=== PATIENT | male | born 1995 | race African-American/Black ===

== ENCOUNTER 2021-01-28 19:37 | Emergency (ER) | payer MEDICAID ==
[~2021-01-28] VITALS: Ht 190.5 cm; Wt 86.4 kg
[2021-01-28 20:45] VITALS: BP 122/76
== END 2021-01-28 21:10 | disposition home or self-care (01) ==
LOC: EMS 19:39
DX: T16.1XXA Foreign body in right ear, initial encounter (principal); F17.210 Nicotine dependence, cigarettes, uncomplicated; W45.8XXA Other foreign body or object entering through skin, initial encounter; Y93.89 Activity, other specified; Y92.89 Other specified places as the place of occurrence of the external cause; Y99.8 Other external cause status
CPT/HCPCS: 99281; Z7502

== ENCOUNTER 2021-03-07 02:32 | Emergency (ER) | payer MEDICAID ==
[~2021-03-07] VITALS: Ht 190.5 cm; Wt 89.5 kg
[2021-03-07 02:35] VITALS: BP 127/75
== END 2021-03-07 03:44 | disposition home or self-care (01) ==
LOC: EMS 02:37
DX: Z70.8 Other sex counseling (principal); F17.210 Nicotine dependence, cigarettes, uncomplicated
CPT/HCPCS: 99281; Z7502